=== PATIENT | male | born 2000 | race Caucasian/White ===

== ENCOUNTER 2022-04-19 12:20 | Emergency (ER) | payer BC ==
[~2022-04-19] VITALS: Ht 86.4 cm; Wt 86.2 kg
[2022-04-19] MEDS ORDERED: AZITHROMYCIN250 MG PO (13:13)
[2022-04-19] MEDS ORDERED: TAMIFLU75 MG PO (13:13)
== END 2022-04-19 13:25 | disposition home or self-care (01) ==
LOC: FSED 12:26
DX: R50.9 Fever, unspecified (principal); J10.1 Influenza due to other identified influenza virus with other respiratory manifestations; J02.0 Streptococcal pharyngitis; R05.9 Cough, unspecified
CPT/HCPCS: 83518; 87400; 99282